=== PATIENT | female | born 2000 | race Caucasian/White ===

== ENCOUNTER 2018-09-29 16:35 | Emergency (ER) | payer BC, OTHER ==
[2018-09-29 17:24] LABS: Basophils % (A) 0 %; Eosinophils # (A) 0.4 k/uL (0-0.7); Eosinophils % (A) 2 %; HCT 40.3 % (34.0-46.0); HGB 13.8 gm/dL (11.4-16.0); Lymphocytes # (A) 1.3 k/uL (1.0-4.8); Lymphocytes % (A) 8 %; MCH 29.6 pg (25.0-35.0); MCHC 34.2 g/dL (31.0-37.0); MCV 86.7 fL (80.0-100.0); Mean Platelet Volume 9.8; Monocytes # (A) 0.7 k/uL (0-1.0); Monocytes % (A) 4 %; Neutrophils # (A) 14.8 k/uL (1.3-7.7); Neutrophils % (A) 86 %; Platelet Count 232 k/uL (150-450); RBC 4.65 m/uL (3.80-5.40); RDW 15.7 % (11.5-15.5); WBC 17.3 k/uL (4.0-11.0)
[2018-09-29 17:25] LABS: Appearance,Urine Clear (Clear); Bilirubin,Urine Negative (Negative); Blood,Urine Negative (Negative); Color,Urine Light Yellow; Glucose,Urine (UA) Negative (Negative); Ketones,Urine Negative (Negative); Leukocyte Esterase,Urine Negative (Negative); Nitrite,Urine Negative (Negative); Protein,Urine Negative (Negative); Urobilinogen,Urine <2.0 mg/dL (<2.0)
[2018-09-29 17:35] LABS: ALT 35 U/L (9-52); AST 18 U/L (14-36); Albumin 3.9 g/dL (3.5-5.0); Alkaline Phosphatase 51 U/L (38-126); Amylase 43 U/L (30-110); Anion Gap 9 mmol/L; Blood Urea Nitrogen 11 mg/dL (7-17); Calcium 9.6 mg/dL (8.4-10.2); Carbon Dioxide 22 mmol/L (22-30); Chloride 109 mmol/L (98-107); Glucose 94 mg/dL (74-99); Lipase 128 U/L (23-300); Potassium 3.7 mmol/L (3.5-5.1); Sodium 140 mmol/L (137-145); Total Bilirubin 0.5 mg/dL (0.2-1.3)
--- NOTE | 2018-09-29 18:52 | US ---
EXAMINATION TYPE: US abdomen APPY DATE OF EXAM: 09/29/2018 COMPARISON: NONE CLINICAL HISTORY: Pain. EC patient with bilateral, intermittent pelvic pain with nausea x 2 days; APPENDIX Ultrasound performed in the right lower quadrant. The appendix is not seen with certainty. IMPRESSION: The appendix is not seen with certainty.
--- NOTE | 2018-09-29 18:54 | US ---
EXAMINATION TYPE: US transvaginal DATE OF EXAM: 09/29/2018 COMPARISON: NONE EC patient with intermittent, bilateral pelvic pain and nausea x 2 days; G0 TECHNIQUE: Transvaginal sonographic images were medically necessary per EC physician to assess ovarie s. Date of LMP: 09/23/2018 EXAM MEASUREMENTS: Uterus: 5.8 x 3.5 x 2.8 cm Endometrial Stripe: 0.8 cm Right Ovary: 2.5 x 1.5 x 2.1 cm Left Ovary: 2.9 x 2.3 x 1.4 cm 1. Uterus: Retroverted; fluid is noted in endocervical canal =2.0 x 0.3 x 0.4cm. 2. Endometrium: thickness is wnl for Day 7LMP 3. Right Ovary: multifollicular with largest as simple cyst = 0.9 x 0.9 x 0.9cm. 4. Left Ovary: multiple follicles with largest as simple cyst =1.4 x 1.3 x 0.7cm. Spectral, color and waveform Doppler imaging shows good arterial and venous flow within the ovaries ; there is no evidence for ovarian torsion. 5. Bilateral Adnexa: medial to right ovary free fluid is seen = 1.2 x 3.5 x 1.1 x 0.523 = 2.4ml (wn l); medial to left ovary free fluid also is seen = 1.2 x 1.8 x 1.7 x 0.523 = 1.9ml (wnl). 6. Posterior cul-de-sac: wnl Grayscale and color Doppler imaging performed of the ovaries. There is color flow, vascular waveforms are identified within the ovaries IMPRESSION: There is some free fluid present within the pelvis. Some fluid noted along the endometriu m.
--- NOTE | 2018-09-29 18:55 | XR ---
Abdomen HISTORY: Lower abdomen pain for 2 days Frontal view of the abdomen on 2 images Lung bases are clear. There is no evident bowel obstruction or pneumoperitoneum. Mild spinal curvatur e is noted. No pathologic calcification. IMPRESSION: Nonobstructive bowel gas pattern
[2018-09-29 19:43] VITALS: RESP 16
--- NOTE | 2018-09-29 19:55 | ED ---
Abdominal Pain HPI - General Chief Complaint: Abdominal Pain Stated Complaint: Abd Pain Time Seen by Provider: 09/29/18 16:40 Source: patient Mode of arrival: ambulatory Limitations: no limitations - History of Present Illness Initial Comments: 18-year-old female presenting today for chief complaint of abdominal pain. Patient states the past 24-48 hours she has had bilateral lower cramping abdominal pain. Patient just finished menstruation a few days prior. Patient states her flow was normal. Patient denies any current vaginal bleeding or discharge. Patient states the pain is more left-sided than right. Patient states the pain is crampy coming and going. Yesterday she states is more mild today she had increase in severity, she states she cried at one point. Mother was concerned and presented today for evaluation of abdominal pain. Patient denies nausea vomiting diarrhea fever chills or night sweats. Patient denies recent travel. Patient denies headache dizziness or any other associated symptoms. Patient denies radiation to the back. Patient denies dysuria or urgency frequency or hematuria. Upon arrival pt states the pain has subsided somewhat. Patient appears well in not acute distress. VS WNL. Patient states last bowel movement was 2-3 days ago. Patient concern of constipation as well. - Related Data Allergies Allergy/AdvReac Type Severity Reaction Status Date / Time red dye Allergy Rash/Hives Verified 09/29/18 16:39 Sulfa (Sulfonamide Allergy Rash/Hives Verified 09/29/18 16:39 Antibiotics) Review of Systems ROS Statement: Those systems with pertinent positive or pertinent negative responses have been documented in the HPI. ROS Other: All systems not noted in ROS Statement are negative. Past Medical History Past Medical History: No Reported History History of Any Multi-Drug Resistant Organisms: None Reported Past Surgical History: No Surgical Hx Reported Past Psychological History: No Psychological Hx Reported Smoking Status: Never smoker Past Alcohol Use History: Rare Past Drug Use History: None Reported General Exam - General Exam Comments Initial Comments: General: The patient is awake and alert, in no distress, and does not appear acutely ill. Eye: Pupils are equal, round and reactive to light, extra-ocular movements are intact. No nystagmus. There is normal conjunctiva bilaterally. No signs of icterus. Ears, nose, mouth and throat: There are moist mucous membranes and no oral lesions. Neck: The neck is supple, there is no tenderness or JVD. Cardiovascular: There is a regular rate and rhythm. No murmur, rub or gallop is appreciated. Respiratory: Lungs are clear to auscultation, respirations are non-labored, breath sounds are equal. No wheezes, stridor, rales, or rhonchi. Gastrointestinal: No noted diaphoresis, jaundice, pallor, protecting postures or squirming. Symmetrical pigmentation of abdomen without signs of inflammation. Umbilicus mildline, inverted without swelling. No dilated veins. No noted abdominal distention. No visible masses. No peristalsis, aortic pulsations, or ventral hernia. Bowel sounds audible in all 4 quadrants, unremarkable. No friction rubs or venous hums. No epigastic, hepatic or abdominal bruits. Tenderness to palpation of the b/l lower quadrants L>R. no rigidity or guarding. Liver edge, not palpable. Spleen edge, right and left kidney not palpable. Superior bladder margin non-tender. Special Testing: Negative [place], [place], McBurney, [place], cutaneous hyperesthesia. Iliopsoas and obturator tests negative bilaterally. Negative Heel Jar test. No CVA tenderness. Digital rectal exam deferred. Negative resendiz turners or cullens sign Musculoskeletal: Normal ROM, no tenderness. Strength 5/5. Sensation intact. Radial pulses equal bilaterally 2+. Neurological: A&O x 3. CN II-XII intact, There are no obvious motor or sensory deficits. Coordination appears grossly intact. Speech is normal. Skin: Skin is warm and dry and no rashes or lesions are noted. Psychiatric: Cooperative, appropriate mood & affect, normal judgment. Limitations: no limitations Course Vital Signs 09/29/18 09/29/18 09/29/18 16:36 19:38 21:11 Temperature 98.5 F 98.7 F 97.7 F Pulse Rate 82 77 85 Respiratory 181 H 16 16 Rate Blood Pressure 119/76 118/79 114/69 O2 Sat by Pulse 100 98 95 Oximetry Medical Decision Making - Medical Decision Making 18-year-old female presenting for bilateral lower pelvic pain, left greater than right. Patient has mild tenderness on examination. Patient states her pain is mild upon arrival. Patient is no rigidity or guarding. Patient denies vaginal discharge dysuria or urgency frequency. Mother was considered appendicitis. Leukocytosis on laboratory studies. Ultrasound the pelvic region revealed bilateral ovarian cysts. With fluid fluid in bilateral adnexa. At this time feel this clinically correlates with ovarian cyst rupture. Also appendix revealed inconclusive study. I discussed that I have low suspicion for appendicitis at this time however this still on the differential diagnosis given the leukocytosis and right lower abdominal pain. I discussed the recommendation for watchful waiting with strict return parameters, mother was persistent she would like CT imaging studies to rule out appendicitis at this time. Patient states she would like to continue to CT imaging studies. CT was obtained after discussing the risk of radiation including cancer. Patient is an adult, capable of making decisions, appears reliable. CT revealed findings with colitis, patient stable appearing well. I discussed the case and reviewed CT with attending Dr. Owen, at this time we feel patient is stable for discharge with outpatient OBGYN, mother states that she will f/u with her OBGYN-patient is agreeable as well as gastroenterology for further evaluation of colitis. I discussed antibiotic use with attending as there is no evidence of diverticulitis or diarrhea we feel that the risks outweight benefit at this time. Pt will be discharged with strict return parameters for worsening pain, pt is agreeable with plan of care as well as discharge. All questions were answered to the best my ability. Patient was discharged appearing well and place with plan. Dr. Owen is agreeable with plan of care and discharge, - Lab Data Result diagrams: 09/29/18 17:15 09/29/18 17:15 Lab Results 09/29/18 09/29/18 09/29/18 Range/Units 17:09 17:09 17:15 WBC (4.0-11.0) k/uL RBC (3.80-5.40) m/uL Hgb (11.4-16.0) gm/dL Hct (34.0-46.0) % MCV (80.0-100.0) fL MCH (25.0-35.0) pg MCHC (31.0-37.0) g/dL RDW (11.5-15.5) % Plt Count (150-450) k/uL Neutrophils % % Lymphocytes % % Monocytes % % Eosinophils % % Basophils % % Neutrophils # (1.3-7.7) k/uL Lymphocytes # (1.0-4.8) k/uL Monocytes # (0-1.0) k/uL Eosinophils # (0-0.7) k/uL Basophils # (0-0.2) k/uL Sodium 140 (137-145) mmol/L Potassium 3.7 (3.5-5.1) mmol/L Chloride 109 H (98-107) mmol/L Carbon Dioxide 22 (22-30) mmol/L Anion Gap 9 mmol/L BUN 11 (7-17) mg/dL Creatinine 0.65 (0.52-1.04) mg/dL Est GFR (CKD-EPI)AfAm >90 (>60 ml/min/1.73 sqM) Est GFR (CKD-EPI)NonAf >90 (>60 ml/min/1.73 sqM) Glucose 94 (74-99) mg/dL Calcium 9.6 (8.4-10.2) mg/dL Total Bilirubin 0.5 (0.2-1.3) mg/dL AST 18 (14-36) U/L ALT 35 (9-52) U/L Alkaline Phosphatase 51 (38-126) U/L Total Protein 7.0 (6.3-8.2) g/dL Albumin 3.9 (3.5-5.0) g/dL Amylase 43 (30-110) U/L Lipase 128 (23-300) U/L Urine Color Light Yellow Urine Appearance Clear (Clear) Urine pH 7.0 (5.0-8.0) Ur Specific [place] 1.010 (1.001-1.035) Urine Protein Negative (Negative) Urine Glucose (UA) Negative (Negative) Urine Ketones Negative (Negative) Urine Blood Negative (Negative) Urine Nitrite Negative (Negative) Urine Bilirubin Negative (Negative) Urine Urobilinogen <2.0 (<2.0) mg/dL Ur Leukocyte Esterase Negative (Negative) Urine HCG, Qual Not Detected (Not Detectd) 09/29/18 Range/Units 17:15 WBC 17.3 H (4.0-11.0) k/uL RBC 4.65 (3.80-5.40) m/uL Hgb 13.8 (11.4-16.0) gm/dL Hct 40.3 (34.0-46.0) % MCV 86.7 (80.0-100.0) fL MCH 29.6 (25.0-35.0) pg MCHC 34.2 (31.0-37.0) g/dL RDW 15.7 H (11.5-15.5) % Plt Count 232 (150-450) k/uL Neutrophils % 86 % Lymphocytes % 8 % Monocytes % 4 % Eosinophils % 2 % Basophils % 0 % Neutrophils # 14.8 H (1.3-7.7) k/uL Lymphocytes # 1.3 (1.0-4.8) k/uL Monocytes # 0.7 (0-1.0) k/uL Eosinophils # 0.4 (0-0.7) k/uL Basophils # 0.0 (0-0.2) k/uL Sodium (137-145) mmol/L Potassium (3.5-5.1) mmol/L Chloride (98-107) mmol/L Carbon Dioxide (22-30) mmol/L Anion Gap mmol/L BUN (7-17) mg/dL Creatinine (0.52-1.04) mg/dL Est GFR (CKD-EPI)AfAm (>60 ml/min/1.73 sqM) Est GFR (CKD-EPI)NonAf (>60 ml/min/1.73 sqM) Glucose (74-99) mg/dL Calcium (8.4-10.2) mg/dL Total Bilirubin (0.2-1.3) mg/dL AST (14-36) U/L ALT (9-52) U/L Alkaline Phosphatase (38-126) U/L Total Protein (6.3-8.2) g/dL Albumin (3.5-5.0) g/dL Amylase (30-110) U/L Lipase (23-300) U/L Urine Color Urine Appearance (Clear) Urine pH (5.0-8.0) Ur Specific [place] (1.001-1.035) Urine Protein (Negative) Urine Glucose (UA) (Negative) Urine Ketones (Negative) Urine Blood (Negative) Urine Nitrite (Negative) Urine Bilirubin (Negative) Urine Urobilinogen (<2.0) mg/dL Ur Leukocyte Esterase (Negative) Urine HCG, Qual (Not Detectd) Disposition Clinical Impression: Abdominal pain, Ovarian cyst, Colitis Disposition: HOME SELF-CARE Condition: Good Instructions (If sedation given, give patient instructions): Ovarian Cyst (ED), Abdominal Pain (ED), Colitis (ED) Additional Instructions: Please use medication as discussed. Please follow-up with family doctor in the next 2 days, please follow-up with [facility] in the next 1-2 weeks as discussed for ovarian cysts. Please return to emergency room if the symptoms increase or worsen or for any other concerns. Is patient prescribed a controlled substance at d/c from ED?: No Referrals: Laya Chang DO [Primary Care Provider] - 1-2 days Jef Ayon MD [STAFF PHYSICIAN] - 1-2 days Time of Disposition: 20:17
--- NOTE | 2018-09-29 20:29 | CT ---
EXAMINATION TYPE: CT abdomen pelvis w con DATE OF EXAM: 09/29/2018 COMPARISON: Abdomen same date HISTORY: abdomen and pelvic pain CT DLP: 592.5 mGycm Automated exposure control for dose reduction was used. TECHNIQUE: Helical acquisition of images from the lung bases through the pelvis have been completed. CONTRAST: Performed without Oral Contrast and with IV Contrast, patient injected with 100 mL of Isovue 300. FINDINGS: LUNG BASES: No significant abnormality is appreciated. AORTA: No significant abnormality is appreciated. LIVER/GB: No significant abnormality is appreciated. PANCREAS: No significant abnormality is seen. SPLEEN: No significant abnormality is seen. ADRENALS: No significant abnormality is seen. KIDNEYS: No significant abnormality is seen. REPRODUCTIVE ORGANS: No significant abnormality is seen BOWEL: Colonic thickening is present, especially at the descending colon there is some inflammatory change present within the surrounding mesenteric fat axial images 27 through 56, some fluid present i n the paracolic gutter immediately adjacent, a sending colon also show some wall thickening. Retained fecal debris present throughout much of the distribution of the colon FREE AIR: No Free Air visible. ASCITES: There is some free fluid in the pelvis.. PELVIC ADENOPATHY: Some nonspecific mesenteric nodes are present at the level of the right lower alfredo drant. RETROPERITONEAL ADENOPATHY: No Retroperitoneal Adenopathy visible. URINARY BLADDER: No significant abnormality is seen. OSSEOUS STRUCTURES: No significant abnormality is seen. IMPRESSION: CORRELATE FOR COLITIS. Follow-up as indicated.
[2018-09-29 21:13] VITALS: BP 114/69; PULSE 85; TEMP 97.7
== END 2018-09-29 21:13 | disposition home or self-care (01) ==
LOC: EC 16:35
DX: K52.9 Noninfective gastroenteritis and colitis, unspecified (principal); N83.201 Unspecified ovarian cyst, right side; N83.202 Unspecified ovarian cyst, left side; Z88.2 Allergy status to sulfonamides; Z91.048 Other nonmedicinal substance allergy status
CPT/HCPCS: 36415; 80053; 82150; 83690; 85025; 81003; 81025; 74018; 93975; 76705; 76830; 74177; 99284; Q9967